=== PATIENT | male | born 1960 | race African-American/Black ===

== ENCOUNTER 2018-03-24 05:11 | Day surgery (SDC) | payer OTHER ==
[2018-03-24] VITALS (12 sets, daily range): BP systolic 127–153; BP diastolic 56–97
[~2018-03-24] VITALS: Ht 177.8 cm; Wt 104.3 kg
[~2018-03-24 05:11] MED LIST: NKM
[2018-03-24] MEDS ORDERED: celeBREX 200mg Cap **SURGERY PATIENTS ONLY ORAL ONE (06:00)
[2018-03-24] MEDS ORDERED: oxyCONTIN 20mg tab ORAL SCH (06:00)
[2018-03-24] MEDS ORDERED: ceFAZolin 1gm in D5W 55ml IVPB ONE (06:00)
[2018-03-24] MEDS ORDERED: Bupivacaine 0.25% Inj 30ml INJ ONE (06:30)
[2018-03-24] MEDS ORDERED: LR 1000ml 1,000 ML IVLG SCH (07:21)
--- NOTE | 2018-03-24 07:21 | Anethesia Preoperative Eval ---
Anesthesia Pre-op PMH/ROS General Date of Evaluation: Mar 24, 2018 Time of Evaluation: 07:16 Anesthesiologist: Halley ASA Score: ASA 2 Mallampati Score Class I : Soft palate, uvula, fauces, pillars visible Class II: Soft palate, uvula, fauces visible Class III: Soft palate, base of uvula visible Class IV: Only hard plate visible Mallampati Classification: Class III Surgeon: Eliel Diagnosis: Bilateral CTS Surgical Procedure: Bilateral CT release Anesthesia History: none Family History: no anesthesia problems Allergies: Coded Allergies: No Known Allergies (Unverified , 03/23/18) Medications: see eMAR Past Medical History Cardiovascular: Denies: HTN, CAD, [place], valve dz, arrhythmia, other Pulmonary: Reports: SANIA; Denies: asthma, COPD, other Gastrointestinal/Genitourinary: Reports: GERD, CRI - Elevated Cr.; Denies: ESRD, other Neurologic/Psychiatric: Denies: dementia, CVA, depression/anxiety, TIA, other Endocrine: Denies: DM, hypothyroidism, steroids, other HEENT: Denies: cataract (L), cataract (R), glaucoma, [place] (L), [place] (R), other Hematology/Immune: Denies: anemia, DVT, bleeding disorder, other Musculoskeletal/Integumentary: Denies: OA, RA, DJD, DDD, edema, other Other: other PMH Narrative: as above PSxH Narrative: Knee scope Anesthesia Pre-op Phys. Exam Physician Exam Last Vital Signs Date Time Temp Pulse Resp B/P (MAP) Pulse Ox O2 Delivery O2 Flow Rate FiO2 03/24/18 05:57 97.2 71 20 132/81 97 Room Air 97.2 Constitutional: NAD Neurologic: CN 2-12 intact Cardiovascular: RRR, no M/R/G Respiratory: CTA Gastrointestinal: S/NT/ND Airway Exam Mallampati Score: Class II MO: full Neck: Short ROM: full Teeth: intact Dentures: no upper, no lower Anesthesia Pre-op A/P Labs see chart Accucheck preoperatively 98. Studies Pre-op Studies: EKG - NSR Risk Assessment & Plan Assessment: ASA 2 Plan: GA with LMA Status Change Before Surgery: No Pre-Antibiotics Drug: Ancef 2gr Given Within 1 Hr of Incision: Yes Time Given: 07:28 J[place] ARENAS M.D. Mar 24, 2018 07:21
[2018-03-24] MEDS ORDERED: Duramorph PF 10mg/10ml amp EPIDUR ONE (07:30)
[2018-03-24] MEDS ORDERED: Sterile Water Irrig 1000ml IRRIG ONE (07:30)
[2018-03-24] MEDS ORDERED: Propofol 200mg/20ml IV ONE (07:30)
[2018-03-24] MEDS ORDERED: LR 1000ml ONE (07:30)
[2018-03-24] MEDS ORDERED: Meperidine 50mg/ml Inj(FOR RIGORS ONLY) IV PRN (07:30)
[2018-03-24] MEDS ORDERED: Midazolam 2mg/2ml Inj ONE (07:30)
[2018-03-24] MEDS ORDERED: fentaNYL 100 mcg/2 mL IV ONE (07:30)
[2018-03-24] MEDS ORDERED: Ketorolac 30mg Inj ONE ×2 (07:30→08:03)
[2018-03-24] MEDS ORDERED: Hydromorphone 0.5mg/0.5ml inj IVP PRN (07:30)
[2018-03-24] MEDS ORDERED: Ketorolac 30mg Inj IV PRN (07:30)
[2018-03-24] MEDS ORDERED: DiphenhydrAMINE 50mg/ml Inj IVP PRN (07:30)
[2018-03-24] MEDS ORDERED: NS Irrig 1000ml IRRIG ONE (07:30)
--- NOTE | 2018-03-24 07:39 | Pre-Procedure Note/Attestation ---
Pre-Procedure Note/Attestation Complete Prior to Procedure Planned Procedure: right Procedure Narrative: carpel tunnel release Indications for Procedure Pre-Operative Diagnosis: right and left carpal tunnel release Attestation I attest that I discussed the nature of the procedure; its benefits; risks and complications; and alternatives (and the risks and benefits of such alternatives ), prior to the procedure, with the patient (or the patient's legal sales representative supervisor). I attest that, if there was a reasonable possibility of needing a blood transfusion, the patient (or the patient's legal sales representative supervisor) was given the [facility] standardized written summary, pursuant to the [place] Nolberto Blood Safety Act ([place] Health and Safety Code # 1645, as amended). I attest that I re-evaluated the patient just prior to the surgery and that there has been no change in the patient's H&P, except as documented below: CHRISTY ASCENCIO Mar 24, 2018 07:39
--- NOTE | 2018-03-24 07:40 | Operative Note - PDOC ---
Operative Note Operative Note Pre-op Diagnosis: right and left carpal tunnel release Procedure: see op report Post-op Diagnosis: same as pre-op plus Operative Findings: consistent w/pre-op dx studies Anesthesia: MAC Specimen: none Complications: none Condition: stable Estimated Blood Loss: none Implant(s) used?: No CHRISTY ASCENCIO Mar 24, 2018 07:40
[2018-03-24] MEDS ORDERED: Kenalog-40 1ml Vial ONE (08:02)
[2018-03-24] MEDS ORDERED: Morphine Sulfate PF 10 ML ONE (08:02)
--- NOTE | 2018-03-24 11:16 | Immediate Post-Op Evaluation ---
Immediate Post-Op Evalulation Immediate Post-Op Evalulation Procedure: Blateral CT release Date of Evaluation: Mar 24, 2018 Time of Evaluation: 08:40 IV Fluids: 1000 Blood Products: none Estimated Blood Loss: min Urinary Output: none Blood Pressure Systolic: 116 Blood Pressure Diastolic: 54 Pulse Rate: 72 Respiratory Rate: 20 O2 Sat by Pulse Oximetry: 99 Temperature (Fahrenheit): 97.6 Pain Score (1-10): 2 Nausea: No Vomiting: No Complications none Patient Status: awake, patent, none Hydration Status: adequate JAMAICA ARENAS M.D. Mar 24, 2018 11:16
--- NOTE | 2018-03-24 11:17 | 48 Hour Post Anesthesia Eval ---
Post Anesthesia Evaluation Procedure: Blateral CT release Date of Evaluation: Mar 24, 2018 Time of Evaluation: 11:16 Blood Pressure Systolic: 136 0: 75 Pulse Rate: 68 Temperature (Fahrenheit): 97.8 O2 Sat by Pulse Oximetry: 98 Airway: patent Nausea: No Vomiting: No Pain Intensity: 2 Hydration Status: adequate Cardiopulmonary Status: stable Mental Status/LOC: patient returned to baseline Follow-up Care/Observations: n/a Post-Anesthesia Complications: none Follow-up care needed: ready to discharge JAMAICA ARENAS M.D. Mar 24, 2018 11:17
[2018-03-24] MEDS ORDERED: D5 1/2NS 1,000 ML IV SCH (14:31)
[2018-03-24] MEDS ORDERED: Tylenol #3 tab (300mg/30mg) ORAL PRN (14:31)
[2018-03-24] MEDS ORDERED: Norco 5mg/325mg tab ORAL PRN (14:31)
--- NOTE | 2018-03-24 16:15 | Operative Note - Dictated ---
DATE OF OPERATION: 03/24/2018 PREOPERATIVE DIAGNOSES: 1. Right carpal tunnel syndrome. 2. Left carpal tunnel syndrome. POSTOPERATIVE DIAGNOSES: 1. Right carpal tunnel syndrome. 2. Left carpal tunnel syndrome. PROCEDURES: 1. Right median nerve decompression (carpal tunnel release). 2. Synovectomy, right flexor tendon. 3. Left median nerve decompression surgery (carpal tunnel release). 4. Synovectomy of flexor tendon, left wrist. SURGEON: Maulik Julian M.D. ANESTHESIA: MAC. INDICATION FOR PROCEDURE: The patient is a pleasant gentleman, who has had bilateral numbness and tingling. He had an EMG which showed [id number] carpal tunnel syndrome. He failed conservative treatment and elected to undergo bilateral carpal tunnel release. Risks, limitations, expectations, and complications of procedure were discussed in detail including continued numbness or tingling, risk of nerve damage, infection, risk of anesthesia, etc. All questions were addressed. DESCRIPTION OF PROCEDURE: After informed consent was obtained, the patient was brought to the operating room. We placed the patient under monitored anesthesia control. Tourniquet was applied to the right proximal arm. Right arm was prepped and draped in sterile manner. Time-out was performed. The skin was marked out. Esmarch was used to exsanguinate the extremity. Skin was incised. Subcutaneous fat was dissected out. Palmaris fascia was identified and incised. Transverse carpal was identified and using a scalpel, an entry point carpal tunnel was performed. Once the carpal tunnel was entered, using blunt-tipped tenotomy scissors, the transverse carpal tunnel was released proximally and distally. At this point, the tenosynovectomy of the flexor tendon was completed to debulk the carpal tunnel. Once this was completed, subcutaneous injection containing Kenalog, Marcaine, Toradol, Duramorph was injected. The skin was approximated with 4-0 nylon sutures. Compression dressing was applied. Attention was turned towards the left wrist. Similarly, the skin was marked out. The skin was incised. Dissection down to the transverse carpal tunnel was performed. The transverse carpal tunnel was incised and using blunt-tipped tenotomy, it was released proximally and distally under direct visualization. Once that was completed, tenosynovectomy of flexor tendon was completed. At that point, again an injection containing 0.25% Marcaine with epinephrine, 40 mg of Kenalog, 15 mg Toradol, and 5 mL of Marcaine was injected. The skin was approximated with 4-0 nylon sutures. Compression dressing was applied. The patient was awoken and taken to recovery room with stable vital signs. ESTIMATED BLOOD LOSS: None. COMPLICATIONS: None. SPECIMENS: None. IMPLANTS: None. Maulik Julian M.D. DR: Raul JOB#: [id number] CC: LULU
== END 2018-03-24 10:30 | disposition home or self-care (01) ==
LOC: SUR 05:11
DX: G56.03 Carpal tunnel syndrome, bilateral upper limbs (principal); G47.33 Obstructive sleep apnea (adult) (pediatric); K21.9 Gastro-esophageal reflux disease without esophagitis; N18.9 Chronic kidney disease, unspecified
CPT/HCPCS: 26145; 64721; 82962; J1885; J2274; J3301; J3490; J2250